=== PATIENT | male | born 1975 | race Caucasian/White ===

== ENCOUNTER 2019-08-22 10:41 | Outpatient (CLI) | payer OTHER ==
--- NOTE | 2019-08-22 16:27 | XRAY Report ---
Reason: PAIN IN LT KNEE Procedure Date: 08/22/2019 Accession Number: [id number] / [id number] Procedure: XR - Knee 3 View BILAT CPT Code: Final Report FULL RESULT: EXAMS: 1. Right Knee Radiography 2. Left Knee Radiography EXAM DATE:08/22/2019 11:10 AM. CLINICAL HISTORY:Pain in left knee. COMPARISON: None. TECHNIQUE: 3 views each. FINDINGS: Right Knee: Bones: No acute fracture or bony lesion. Minimal degenerative spurring. Joints: Normal alignment. No knee effusion. No significant joint space narrowing. Soft Tissues: Normal. No soft tissue swelling. Left Knee: Bones: No acute fracture or bony lesion. Minimal degenerative spurring. Joints: Normal alignment. No knee effusion. No significant joint space narrowing. Soft Tissues: Normal. No soft tissue swelling. IMPRESSION: 1. No osseous abnormalities. No significant degenerative changes. [facility]
== END 2019-08-22 10:42 | disposition home or self-care (01) ==
LOC: DI 10:41
PROVIDERS: ATTEND Internal Medicine
DX: M25.562 Pain in left knee (principal)